=== PATIENT | male | born 1970 | race Caucasian/White ===

== ENCOUNTER 2019-09-15 15:04 | Emergency (ER) | payer OTHER, SELFPAY ==
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
[2019-09-15 15:09] VITALS: BP 152/81; PULSE 101; RESP 18; TEMP 36.8; O2SAT 99
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
[2019-09-15] MEDS: KETOROLAC (*BKC) 60 MG/2 ML VIAL IM (16:36)
== END 2019-09-15 16:37 | disposition home or self-care (01) ==
PROVIDERS: Emergency Provider General Practice; PCP Internal Medicine
DX: M25.531 Pain in right wrist (principal); M25.562 Pain in left knee; S39.92XA Unspecified injury of lower back, initial encounter; M47.816 Spondylosis without myelopathy or radiculopathy, lumbar region; M17.12 Unilateral primary osteoarthritis, left knee; V49.40XA Driver injured in collision with unspecified motor vehicles in traffic accident, initial encounter
CPT/HCPCS: 72100; 73110; 73562; 96372; 99284; J1885